=== PATIENT | female | born 1950 | race Caucasian/White ===

== ENCOUNTER 2017-03-21 16:05 | Emergency (ER) | payer OTHER, MEDICARE ==
[~2017-03-21] VITALS: Ht 162.6 cm; Wt 62.7 kg
[2017-03-21 16:12] VITALS: BP 153/92; PULSE 80; RESP 16; O2SAT 97
--- NOTE | 2017-03-21 17:00 | DRSVH ---
PROCEDURE: CT BRAIN WITHOUT CONTRAST ([id number]) INDICATIONS: fall TECHNIQUE: Noncontrast 4.5 mm thick angled axial sections acquired from the foramen magnum to the vertex, with c oronal reformats. COMPARISON: None. FINDINGS: Image quality: Excellent. CSF spaces: Basal cisterns are patent. No extra-axial fluid collections. The ventricles are symmet rajwinder in size and shape. Brain: No intracranial bleeds or masses. There is cerebral volume loss for age, with resultant vent ricular and sulcal prominence. There are periventricular and deep white matter chronic small vessel ischemic changes. There is intracranial internal carotid artery atherosclerosis. Skull and face: There is a large right frontal subgaleal hematoma and preorbital soft tissue swelling . Calvarium and visualized facial bones appear intact, without suspicious lesions. The orbits are in tact. Sinuses: Visualized sinuses and mastoids are clear. IMPRESSION: 1. No acute intracranial findings. 2. Large right frontal subgaleal hematoma and preorbital soft tissue swelling without underlying calv arial abnormality. 3. Mild findings likely associated with microvascular ischemic changes. Dictated by: Socorro Epperson M.D. on 03/21/2017 at 16:55 Approved by: Socorro Epperson M.D. on 03/21/2017 at 16:58
--- NOTE | 2017-03-21 17:03 | DRSVH ---
PROCEDURE: CT CERVICAL SPINE WITHOUT CONTRAST ([id number]) INDICATIONS: fall TECHNIQUE: Noncontrast 3 mm thick sections acquired from the skull base to the T4 level. Sagittal and coronal r eformats were then constructed. For radiation dose reduction, the following was used: automated exp osure control, adjustment of mA and/or kV according to patient size. COMPARISON: None. FINDINGS: Image quality: Excellent. Bones: No fractures or dislocations. Moderate degenerative changes present at C6-7 including interve rtebral disc space narrowing, endplate sclerosis, and osteophytosis. Visualized superior ribs are int act. Soft tissues: Prevertebral soft tissues are normal in thickness. No paravertebral hematomas. No ap ical pneumothoraces. IMPRESSION: 1. Degenerative changes. 2. No acute cervical spine injury. Dictated by: Socorro Epperson M.D. on 03/21/2017 at 16:59 Approved by: Socorro Epperson M.D. on 03/21/2017 at 17:01
--- NOTE | 2017-03-21 17:17 | ED.REPORT ---
HPI-Trauma Minor / Fall Date of Service March 21, 2017 ED Provider: Doc,Ed MD History of Present Illness: went to the bathroom, woke up on the floor and feeling a bruise on head. no vomiting. slight nausea earlierafter eating dinner. none after fall. marie is primary care. up to date. takes 2 asa a day for pain, 325 mg. Nursing Notes Stated Complaint: LOC AND FALL Chief Complaint: Multiple Trauma/Fall Allergies: Coded Allergies: No Known Allergies (Unverified , 03/21/17) General Time Seen by MD: 17:16 Chief Complaint Fall Hx Obtained From: Patient Onset Occurred: 17 - 20 hours ago Symptom Duration: Since onset Risk Factors IC Bleed Risk Stratification Age (<1 yr or >60 yrs) Blood thinnersNo Coagulation disorder, No EtOH use, No Prior epidural bleed Risk factors reviewed Past Medical History Past Medical History Denies: Asthma, Diabetes mellitus Past Surgical History denies Smoking History Never Smoker Social History Alcohol Use: "Social" Drug Use: Denies drug use Occupation single lives by self, works at [employer] in [place]. 03/21/2017 Ambulatory Status Independent Review of Systems Basic Review of Systems Cardiovascular: No chest pain, No dyspnea on exertion, No orthopnea, No parox noct dyspnea, No palpitations GI: No abdominal pain, No anorexia, No nausea, No vomiting : No dysuria, No frequency Hematologic: No bleeding, No bruising Endocrine: No cold intolerance, No heat intolerance, No weight gain, No weight loss Allergy / Immune: No allergy Psychiatric: Normal thought content Physical Exam Initial Vital Signs Vital Signs (First) Date Time Temp Pulse Resp B/P Pulse Ox O2 Delivery O2 Flow Rate FiO2 03/21/17 16:12 36.3 80 16 153/92 97 Room Air Initial VS: Reviewed, Vital signs normal Head / Eyes: Atraumatic, Normocephalic, PERRL ENT: Mucous membranes moist, Conjunctiva normal, No scleral icterus Respiratory: Breath sounds normal, Clear to auscultation, No respiratory distress Cardiovascular: Regular rate & rhythm, Heart sounds normal, Intact distal pulses Abdomen / GI: Soft, Non-tender, No guarding, No rebound, No distention Back: No CVA tenderness Lymphatic: No lymphadenopathy Extremities: Vascular intact, Neuro intact, No swelling, No tenderness Skin: Warm, Dry, No cyanosis Neurologic: Alert, Oriented, Nonfocal Psychiatric: Mood/affect normal, Behavior normal, Normal thought content General/Constitutional: Awake, Alert, No acute distress, Well appearing, Well developed, Well hydrated Neck: Atraumatic, Supple, No meningismus, Full range of motion, No adenopathy patient with ecchymosis noted on right side of forehead. Also into right eye. Eye itself is clear, no hemmoraghe noted. No entrapment noted. Diffuse swelling in lid of eye. Respiratory / Chest: Atraumatic, Breath sounds NL, Breath sounds = bilat, No respiratory distress Cardiovascular: Heart rate NL, Regular rhythm, Heart sounds NL, No gallop, No murmurs Interpretation & Diagnostics Lab Results Interpretation Result Diagram: 03/21/17 1730 03/21/17 1730 Test 03/21/17 17:30 White Blood Count 11.4th/mm3 (3.8-10.1) Red Blood Count 4.01mil/mm3 (3.90-5.20) Hemoglobin 13.2g/dL (12.0-15.6) Hematocrit 37.3% (35.0-46.0) Mean Corpuscular Volume 93.0fL (81-100) Mean Corpuscular Hemoglobin 32.9pg (27.0-35.0) Mean Corpuscular Hemoglobin Concent 35.4% (32.0-37.0) Red Cell Distribution Width 11.7% (12.3-15.4) Platelet Count 281bil/L (150-400) Neutrophils (%) (Auto) 79.5% (40-74) Lymphocytes (%) (Auto) 12.1% (14-46) Monocytes (%) (Auto) 7.5% (4-12) Eosinophils (%) (Auto) 0.4% (0-5) Basophils (%) (Auto) 0.2% (0-3) Sodium Level 131mEq/L (134-144) Potassium Level 3.8mEq/L (3.5-5.2) Chloride Level 94mEq/L (97-108) Carbon Dioxide Level 23mmol/L (18-29) Blood Urea Nitrogen 8mg/dL (8-27) Creatinine 0.50mg/dL (0.57-1.00) Estimat Glomerular Filtration Rate 177mL/min (>59) Glucose Level 129mg/dL (60-99) Calcium Level 9.4mg/dL (8.5-10.1) Total Bilirubin 0.9mg/dL (0.0-1.2) Aspartate Amino Transf (AST/SGOT) 24U/L (0-50) Alanine Aminotransferase (ALT/SGPT) 19U/L (0-32) Alkaline Phosphatase 79U/L (25-165) Total Protein 7.4g/dL (6.4-8.4) Albumin 4.2g/dL (3.4-5.0) X-Ray C-Spine Interpretation ROCEDURE: CT CERVICAL SPINE WITHOUT CONTRAST ([id number]) INDICATIONS: fall TECHNIQUE: Noncontrast 3 mm thick sections acquired from the skull base to the T4 level. Sagittal and coronal reformats were then constructed. For radiation dose reduction, the following was used: automated exposure control, adjustment of mA and/or kV according to patient size. COMPARISON: None. FINDINGS: Image quality: Excellent. Bones: No fractures or dislocations. Moderate degenerative changes present at C6-7 including intervertebral disc space narrowing, endplate sclerosis, and osteophytosis. Visualized superior ribs are intact. Soft tissues: Prevertebral soft tissues are normal in thickness. No paravertebral hematomas. No apical pneumothoraces. IMPRESSION: 1. Degenerative changes. 2. No acute cervical spine injury. Dictated by: Socorro Epperson M.D. on 03/21/2017 at 16:59 Approved by: Socorro Epperson M.D. on 03/21/2017 at 17:01 CT Head Interpretation PROCEDURE: CT BRAIN WITHOUT CONTRAST ([id number]) INDICATIONS: fall TECHNIQUE: Noncontrast 4.5 mm thick angled axial sections acquired from the foramen magnum to the vertex, with coronal reformats. COMPARISON: None. FINDINGS: Image quality: Excellent. CSF spaces: Basal cisterns are patent. No extra-axial fluid collections. The ventricles are symmetric in size and shape. Brain: No intracranial bleeds or masses. There is cerebral volume loss for age, with resultant ventricular and sulcal prominence. There are periventricular and deep white matter chronic small vessel ischemic changes. There is intracranial internal carotid artery atherosclerosis. Skull and face: There is a large right frontal subgaleal hematoma and preorbital soft tissue swelling. Calvarium and visualized facial bones appear intact, without suspicious lesions. The orbits are intact. Sinuses: Visualized sinuses and mastoids are clear. IMPRESSION: 1. No acute intracranial findings. 2. Large right frontal subgaleal hematoma and preorbital soft tissue swelling without underlying calvarial abnormality. 3. Mild findings likely associated with microvascular ischemic changes. Dictated by: Socorro Epperson M.D. on 03/21/2017 at 16:55 Approved by: Socorro Epperson M.D. on 03/21/2017 at 16:58 Re-Eval/Medical Decision Med Decision/Clinical Course 66 year old presents for evualation after fall in the evening, Last remembered event was getting up to go to the bathroom. woke up on the floor feeling a bruise on her head. denies nausea or vomiting after fall. Labs are normal. Head CT shows bruising, no bleeding or bony damage. . C-spine is normal. Discharge & Departure Impression: Primary Impression: Fall Encounter type: initial encounter Qualified Code: W19.XXXA - Unspecified fall, initial encounter Additional Impressions: Contusion of face Encounter type: initial encounter Qualified Code: S00.83XA - Contusion of other part of head, initial encounter Head trauma Encounter type: initial encounter Qualified Code: S09.90XA - Unspecified injury of head, initial encounter Disposition: Home Patient Instructions: Contusion in Adults (GEN) Additional Instructions: The head CT and the x-rays are normal. No sign of fracture or bleeding. Use ice to the site 15 minutes on and 15 minutes off for 3 to 4 days. For the next 7 days, decrease your ASA use to 1 a day. Can use hydrocodone 1 up to 2 times a day as needed for discomfort. Please follwo with primary care as needed. Note for off work written for the remaining week. I am sorry this happened. Referrals: NOP[facility] (PCP) EDSupervising Provider for APC: Tien Perera MD, Sue ARNP March 21, 2017 17:17
[2017-03-21 17:38] LABS: BASOPHILS % (AUTO) 0.2 % (0-3); EOSINOPHILS % (AUTO) 0.4 % (0-5); MONOCYTES % (AUTO) 7.5 % (4-12); Mean Corpuscular Hemoglobin 32.9 pg (27.0-35.0); NEUTROPHILS % (AUTO) 79.5 % (40-74); Platelet Count 281 bil/L (150-400)
[2017-03-21 17:57] VITALS: BP 131/82; PULSE 74; RESP 16; O2SAT 97
== END 2017-03-21 17:58 | disposition home or self-care (01) ==
LOC: SED 16:05
DX: S00.83XA Contusion of other part of head, initial encounter (principal); S09.8XXA Other specified injuries of head, initial encounter; W18.39XA Other fall on same level, initial encounter; Y93.9 Activity, unspecified; Y92.002 Bathroom of unspecified non-institutional (private) residence as the place of occurrence of the external cause; Y99.9 Unspecified external cause status